=== PATIENT | male | born 1995 | race Caucasian/White ===

== ENCOUNTER 2017-02-04 19:57 | Emergency (ER) | payer OTHER ==
[2017-02-04 23:06] VITALS: BP 98/64
[2017-02-05] MEDS ORDERED: Rabies Vaccine, PCEC INJ IM ONE (02:14)
--- NOTE | 2017-02-05 03:07 | ED ---
Bite Injury/Animal - HPI Summary HPI Summary: Patient arrives to ED after a dog bite injury to the inside of the left thigh. He states the dogs actionscript developer who was present stated the dog was UTD on all his shots including rabies. Patient denies any symptoms. He states he had the rabies prophylaxis in March 2015. According to rabies checklist, patient only needs to receive prophylaxis 2.5mg rabies vaccination. Patient is OK with following up with [facility] in 3 days for second vaccination. - History of Current Complaint Chief Complaint: EDAnimalBite Stated Complaint: DOG BITE/LT LEG Time Seen by Provider: 02/05/17 02:12 Hx Obtained From: Patient Onset of Injury: Happened hours ago Type of Bite: Animal Hx of Bite: Unprovoked Has Animal Been Immunized?: Yes Severity Initially: Mild Severity Currently: Mild Pain Intensity: 0 Pain Scale Used: 0-10 Numeric Character: Abrasion/Laceration Aggravating Factor(s): Nothing Alleviating Factor(s): Nothing Associated Signs And Symptoms: Positive: Negative Animal Available for Observation: No Animal Control Notified: No Body - Head: 1 - 4X4 superficial abrasion - Risk Factors Infection/Sepsis Risk Factors: Negative - Allergies/Home Medications Allergies/Adverse Reactions: Allergies Allergy/AdvReac Type Severity Reaction Status Date / Time No Known Allergies Allergy Verified 08/17/16 18:54 PMH/Surg Hx/FS Hx/Imm Hx Previously Healthy: Yes - Surgical History Surgery Procedure, Year, and Place: [place] Teeth Removed Infectious Disease History: No Infectious Disease History: Denies: Traveled Outside the [place] in Last 30 Days - Family History Family History: FHx of HLD - Mother and Father - Social History Occupation: Student Lives: With Family Alcohol Use: None Hx Substance Use: No Substance Use Type: Reports: None Hx Tobacco Use: No Smoking Status (MU): Never Smoked Tobacco Do You Chew or Dip Tobacco: No Have You Chewed or Dipped Tobacco in the LAST YEAR: No Review of Systems Constitutional: Negative ENT: Negative Cardiovascular: Negative Respiratory: Negative Musculoskeletal: Negative Skin: Negative Neurological: Negative Psychological: Normal All Other Systems Reviewed And Are Negative: Yes Physical Exam Triage Information Reviewed: Yes Vital Signs On Initial Exam: Initial Vitals Temp Pulse Resp BP Pulse Ox 98.7 F 92 18 123/68 100 02/04/17 20:00 02/04/17 20:00 02/04/17 20:00 02/04/17 20:00 02/04/17 20:00 Vital Signs Reviewed: Yes Appearance: Positive: Well-Appearing, No Pain Distress, Well-Nourished Skin: Positive: Warm, Skin Color Reflects Adequate Perfusion, Other - abrasion to left inner thigh after dog bite Eyes: Positive: Normal, SAM, Conjunctiva Clear Neck: Positive: Supple, No Lymphadenopathy Respiratory/Lung Sounds: Positive: Clear to Auscultation, Breath Sounds Present Cardiovascular: Positive: Normal, RRR, Pulses are Symmetrical in both Upper and Lower Extremities Musculoskeletal: Positive: Normal, Strength/ROM Intact Psychiatric: Positive: Normal, Affect/Mood Appropriate AVPU Assessment: Alert - Dimas Coma Scale Best Eye Response: 4 - Spontaneous Best Motor Response: 6 - Obeys Commands Best Verbal Response: 5 - Oriented Diagnostics - Vital Signs Vital Signs Temp Pulse Resp BP Pulse Ox 02/04/17 23:05 97.8 F 74 15 98/64 100 02/04/17 22:00 98.3 F 79 16 122/63 100 02/04/17 20:00 98.7 F 92 18 123/68 100 - Laboratory Lab Statement: Any lab studies that have been ordered have been reviewed, and results considered in the medical decision making process. Bite Injury Course/Dx - Course Course Of Treatment: Health department notified at 3:00am. Left message with picker machine operator and will receive a callback tomorrow morning. 2.5 rabies vaccination placed in L deltoid by RN. Patients wound is superficial abrasion with no punture wound. Patient is to follow up with [facility] in 3 days for second dose. He has previously had prophylaxis in 2015 - according to health dept - does not need new prophylaxis protocol in wound. - Diagnoses Differential Diagnosis/HQI/PQRI: Positive: Crush Injury, Puncture, Deep Space Infection Provider Diagnosis: Dog bite Discharge - Discharge Plan Condition: Stable Disposition: HOME Patient Education Materials: Rabies Immune Globulin (By injection), Rabies Vaccine (ED) Referrals: Antony Shetty [Primary Care Provider] - Additional Instructions: Follow up with Antony for 2nd prophylactic dose of rabies vaccination. If you develop any symptoms such as fever, drainage from the area, redness, warmth - come back to ED or see [facility].
== END 2017-02-05 02:59 | disposition home or self-care (01) ==
LOC: ED 19:57
DX: S70.312A Abrasion, left thigh, initial encounter (principal); W54.0XXA Bitten by dog, initial encounter; Y93.9 Activity, unspecified; Y92.9 Unspecified place or not applicable; Y99.9 Unspecified external cause status
CPT/HCPCS: 90675; 96372; 99282